=== PATIENT | female | born 2000 | race Caucasian/White ===

== ENCOUNTER → 2020-05-11 08:00 | Outpatient (BNVA) | payer OTHER, SELFPAY | PROVIDERS: Family Provider Family Medicine; PCP Pediatrics Adolescent Medicine; Visit Provider Podiatrist Foot & Ankle Surgery | DX: M79.671 Pain in right foot (principal); M21.611 Bunion of right foot | CPT/HCPCS: 73630 ==

== ENCOUNTER → 2020-06-21 15:03 | Outpatient (BNVA) | payer OTHER, SELFPAY | PROVIDERS: Family Provider Family Medicine; PCP Pediatrics Adolescent Medicine; Visit Provider Podiatrist Foot & Ankle Surgery | DX: M79.673 Pain in unspecified foot (principal) | CPT/HCPCS: 73630 ==

== ENCOUNTER → 2020-09-13 12:58 | Outpatient (BNVA) | payer OTHER, SELFPAY | PROVIDERS: Family Provider Family Medicine; PCP Pediatrics Adolescent Medicine; Visit Provider Orthopaedic Surgery | DX: M79.641 Pain in right hand (principal) | CPT/HCPCS: 73130 ==

== ENCOUNTER → 2020-09-19 17:51 | Outpatient (BNVA) | payer OTHER, SELFPAY | PROVIDERS: Family Provider Family Medicine; PCP Pediatrics Adolescent Medicine; Visit Provider Podiatrist Foot & Ankle Surgery | DX: Z11.59 Encounter for screening for other viral diseases (principal) | CPT/HCPCS: 87635 ==

== ENCOUNTER 2020-09-23 05:49 | Day surgery (SDC) | payer OTHER, SELFPAY ==
[2020-09-22 16:58] VITALS: BMI 29.4
[2020-09-23] VITALS (8 sets, daily range): BP systolic 126–139; BP diastolic 57–86; PULSE 86–136; RESP 18–22; TEMP 36.2–36.8; O2SAT 97–100; BMI 29.4
[2020-09-23] MEDS: sodium chloride 0.9% 1,000 ML 30 ML IV (06:30)
--- NOTE | 2020-09-23 06:37 | P.HPUD_ITS ---
Surgery/Procedure H&P Update DATE OF PROCEDURE: September 23, 2020 DATE H&P PERFORMED: 09/19/20 H&P UPDATE INFORMATION: I have reviewed H&P completed within last 30 days, I have examined patient prior to procedure, No changes to prior documentation and H&P is in [facility] EMR on date indicated PREOP DIAGNOSIS: Plantar verruca a bilateral PLANNED PROCEDURE: Operation Date: 09/23/20 07:00 Proposed Procedures p Co2 laser Plantar foot Plate Repair left and right 55771 B07.0(Bilateral) - Steve Barros DPM
[2020-09-23 06:38] LABS: OR HCG Qualitative Urine Negative (Negative)
--- NOTE | 2020-09-23 06:38 | P.OP_ITS ---
Operative Report Date of procedure: September 23, 2020 Pre-op Diagnosis: Plantar verruca left foot and right foot Post-op diagnosis: same Procedure Done: Destruction of plantar wart with CO2 laser left foot and right foot CPT code 01045 Implants: None Specimens removed/disposition: None Pathology: none sent Surgeon: Steve Barros D.P.M. Print Color Operator: Tanya Anesthesia: General Estimated blood loss: Less than 5 mL Tourniquet time: See intraoperative documentation IV fluids: None Urine output: None Complications: None Condition: stable Disposition: PACU Brief History: Patient has plantar verruca left and right foot that has been recalcitrant and unresponsive to conservative care consisting of paring/and debridement, offloading, vesicant's including salicylic acid, imiquimod, cryotherapy and occlusive coverings for greater than 1 year also did a course of oral cimetidine, they are symptomatic when weightbearing. Patient would like to proceed with destruction of lesions with CO2 laser. Patient seen preoperatively initial left and right foot informed consent signed, patient ready to proceed. Procedure: Under mild sedation the patient was brought to the operating room and placed on the operating table in supine position. A timeout was performed. Anesthesia was then administered by the anesthesia service. Local anesthesia injected by myself consisting of 18 cc of 1% lidocaine with epinephrine subcu taneously at the lesions left and right foot. Well-padded pneumatic tourniquet applied to left and right ankle. Left and right lower extremities were then scrubbed, prepped and draped utilizing normal aseptic technique. Bilateral feet were extenuated with a Esmarch bandage and a tourniquets were inflated to 250 mmHg. Attention was directed to the plantar aspect of the right foot and at the pos terior plantar heel a cluster of plantars warts were demarcated circular ventrally outside of the lesion itself as to provide a healthy margin utilizing a CO2 laser set on continuous 3 W. Quentin vacuum utilized for smoke. Each lesion was destroyed and curetted 2 times followed by final cauterization zoomed out still at 3 W. Appear to have a healthy level care was taken not to burn through basement membrane to avoid scarring. Attention was then directed to the plantar aspect of the left forefoot were multiple clusters both at the heel, medial and central forefoot were removed utilizing CO2 laser on 3 W continuous with subsequent debridement of devitalized tissue utilizing dermal curette. All lesions were identified, destroyed via CO2 laser with care taken not to penetrate basement membrane to avoid excessive scarring. No remaining lesions appreciated. All sites were dressed with Silvadene cream, Adaptic, sterile 4 x 4's, Kerlix and Crow wrap, postop shoe to the right foot and cam boot to the left. Tourniquet is deflated and prompt hyperemic response noted to distal digits of left and right foot. Patient tolerated the procedure well and was transferred to the PACU with vital signs stable vascular status intact. Following a period of postoperative monitoring she will be discharged home.
[2020-09-23] MEDS: midazolam 1 mg/mL INJ 2 mL 2 MG IVP (06:41)
--- NOTE | 2020-09-23 06:43 | ANES.PREANE2 ---
Pre-Anesthetic Assessment Pre-Anesthetic Assessment: Height/Weight: Height 1.65 m Weight 80.286 kg Temp Pulse Resp BP Pulse Ox 98.2 F 86 18 136/86 100 09/23/20 06:23 09/23/20 06:23 09/23/20 06:23 09/23/20 06:23 09/23/20 06:23 Preop Diagnosis: Plantar verruca a bilateral Proposed Procedure: Operation Date: 09/23/20 07:00 Proposed Procedures p Co2 laser Plantar foot Plate Repair left and right 65465 B07.0(Bilateral) - Steve Barros DPM Was Beta Christofer taken within 24 hours: N/A Last intake: Intake Last Liquid Date 09/22/20 Last Liquid Time 20:00 Last Solid Date 09/22/20 Last Solid Time 20:00 Social: Social History: No alcohol and No tobacco Exam: Pre-Anes Outpt Exam: alert, oriented x 3, clear to auscultation bilaterally and regular rate & rhythm Airway: Submandibular: WNL Cervical ROM: WNL MP: 2 Dentition: Full Pulmonary: Pulmonary: None reported CV/HEM: CV/HEM: None reported : : None reported Hepatic: Hepatic: None reported GI: GI: None reported Metabolic: Metabolic: None reported Musc/skel: Musc/skel: None reported Neuropsych: Neuropsych: None reported Anesthetic Plan: ASA status: 1 Anesthesia: MAC Risk of > 500 ml blood loss (7ml/kg in children): No Meds/Allergies Current Medications: Current Medications Generic Name Dose Route Start Last Admin Trade Name Freq PRN Reason Stop Dose Admin Sodium Chloride 1,000 mls @ 30 ml s/hr 09/23/20 06:30 09/23/20 06:30 Sodium Chloride 0.9% IV 09/24/20 06:29 30 mls/hr .Q24H KAUSHIK Administration PFSH Anesthesia PFSH: Medical History (Updated 09/20/20 @ 11:12 by Steve Barros DPM) Patient denies significant medical history Data Anesthesia Other Labs: Laboratory Results - last 48 hr 09/23/20 06:05 Urine HCG, Qual Negative Cardiac Studies: No Data to Display
[2020-09-23] MEDS: silver sulfadiazine cream 1% 50 gm 50 APPLIC (08:16)
[2020-09-23] MEDS: ondansetron 2 mg/ML SDV 2 mL 4 MG IVP (09:08)
--- NOTE | 2020-09-23 09:50 | ANE.PACU2 ---
Inpatient post-anesthesia follow up: Airway intact: Yes Vital signs: Temperature 97.6 F Pulse Rate 105 Respiratory Rate 18 Blood Pressure 126/78 Pulse Oximetry 99 Oxygen Delivery Me thod Room Air Oxygen Flow Rate Fraction of Inspir ed Oxygen Hydration adequate: Yes Nausea and vomiting: No Pain level: 1 Mental status: Baseline
== END 2020-09-23 10:04 | disposition home or self-care (01) ==
PROVIDERS: Anesthesiology; PCP Pediatrics Adolescent Medicine; Visit Provider Podiatrist Foot & Ankle Surgery
PROC: (CPT 28899; principal; 2020-09-23 07:00)
DX: B07.0 Plantar wart (principal)
CPT/HCPCS: 17110; 12345; 84703; 96374; 96375; J0690; J1100; J1885; J2250; J2405; J2704; J7030

== ENCOUNTER 2020-09-27 12:16 | Outpatient (CLI) | payer OTHER, SELFPAY ==
--- NOTE | 2020-09-27 12:00 | USCV_ITS ---
Holli Garcia Age: 20 Gender: F : 2000 Exam Date: 09/27/2020 12:48 Ordering Phys: Steve Barros DPM Technologist: Saman Cullen Exam Location: [facility] Indication: LT LEG PAINFULL KNOT OR ROPE IN BACK OF LT CALF HISTORY: POST OP LT FOOT PROCEDURES: Venous duplex imaging was performed in only the left lower extremity. The following venous structures were evaluated: common femoral vein, profunda vein, proximal portion of the greater saphenous vein, superficial femoral vein, and the popliteal vein. In addition, the posterior tibial and peroneal trunk were evaluated. FINDINGS: Normal 2-D Doppler and augmentation and compressibility throughout the lower extremity venous structures. Additional imaging through the proximal calf veins also reveals no thrombus.Acute thrombus lesser saphenous vein. CONCLUSIONS No DVT left lower extremity. Acute thrombus lesser saphenous vein. Dr. Hailee Guajardo DO (Electronically Signed) Final Date: 27 September 2020 14:53 S
== END 2020-09-27 12:17 | disposition home or self-care (01) ==
LOC: RAD 12:19
PROVIDERS: PCP Family Medicine; Visit Provider Podiatrist Foot & Ankle Surgery
DX: Z98.890 Other specified postprocedural states (principal); M79.662 Pain in left lower leg; I82.890 Acute embolism and thrombosis of other specified veins
CPT/HCPCS: 93971

== ENCOUNTER → 2020-11-08 12:24 | Outpatient (BNVA) | payer OTHER, SELFPAY | PROVIDERS: PCP Family Medicine | DX: M25.561 Pain in right knee (principal) | CPT/HCPCS: 73562 ==

== ENCOUNTER 2020-11-28 08:19 | Outpatient (CLI) | payer OTHER, SELFPAY ==
--- NOTE | 2020-11-28 08:29 | MR_ITS ---
WS: [id number] MRI RIGHT KNEE NONCONTRAST TECHNIQUE: Axial PD, coronal PD fat sat, coronal PD, sagittal PD, and sagittal PD fat-sat images obta ined. CLINICAL INFORMATION: 3 WEEKS OF PAIN/SWELLING, CREPITUS AFTER TWISTING INJURY COMPARISON: None. FINDINGS: Distal quadriceps and patella tendons are intact. Mild prepatellar soft tissue edema. Normal anterior and posterior cruciate ligaments. Slight blunting with edema involving the posterior horn medial men iscus at the meniscal root suspicious for small tear. Normal lateral meniscus. Mild chondromalacia pa tella worse involving the medial patella facet. No subchondral edema. Normal popliteal fossa. Normal soft tissues. Normal bone marrow signal in the tibial plateau. Normal medial and lateral collateral ligaments. MR/MR knee RT wo con* [id number] IMPRESSION: 1. Normal anterior and posterior cruciate ligaments. 2. Small joint effusion. Slight blunting of the posterior horn medial meniscus with suspected small tear at the meniscal root. Lateral meniscus is normal. 3. Mild chondromalacia patella involving the medial patella facet. Medial and lateral patellar retinaculum appear intact. 4. Normal medial and lateral collateral ligaments. 5. Normal popliteal fossa.
== END 2020-11-28 08:20 | disposition home or self-care (01) ==
LOC: RADWPI 08:22
PROVIDERS: PCP Family Medicine; Visit Provider Emergency Medicine
DX: M25.561 Pain in right knee (principal); M25.461 Effusion, right knee; M22.41 Chondromalacia patellae, right knee
CPT/HCPCS: 73721

== ENCOUNTER 2020-12-16 08:26 | Outpatient (RCR) | payer OTHER, SELFPAY | END 2021-01-01 23:59 | disposition home or self-care (01) | LOC: SPT 08:26 | PROVIDERS: PCP Family Medicine; Referring Provider Orthopaedic Surgery; Visit Provider Orthopaedic Surgery | DX: M25.561 Pain in right knee (principal) | CPT/HCPCS: 97110; 97161 ==

== ENCOUNTER 2021-01-02 06:00 | Outpatient (RCR) | payer OTHER, SELFPAY | END 2021-01-29 23:59 | disposition home or self-care (01) | LOC: SPT 06:00 | PROVIDERS: PCP Family Medicine; Referring Provider Orthopaedic Surgery; Visit Provider Orthopaedic Surgery | DX: S83.91XD Sprain of unspecified site of right knee, subsequent encounter (principal); X58.XXXD Exposure to other specified factors, subsequent encounter | CPT/HCPCS: 97110 ==

== ENCOUNTER → 2021-02-24 13:38 | Outpatient (BNVA) | payer OTHER, SELFPAY | PROVIDERS: PCP Family Medicine; Visit Provider Orthopaedic Surgery | DX: Z01.812 Encounter for preprocedural laboratory examination (principal); Z20.822 Contact with and (suspected) exposure to COVID-19 | CPT/HCPCS: 87635 ==

== ENCOUNTER 2021-03-02 06:33 | Day surgery (SDC) | payer OTHER, SELFPAY ==
[2021-03-01 13:28] VITALS: BMI 30.7
[2021-03-02] VITALS (8 sets, daily range): BP systolic 81–132; BP diastolic 38–75; PULSE 83–99; RESP 16–18; TEMP 36.3–36.8; O2SAT 93–100
[2021-03-02 07:06] LABS: OR HCG Qualitative Urine Negative (Negative)
[2021-03-02] MEDS: sodium chloride 0.9% 1,000 ML 30 ML IV (07:19)
--- NOTE | 2021-03-02 07:27 | ANES.PREANE2 ---
Pre-Anesthetic Assessment Pre-Anesthetic Assessment: Height/Weight: Height 1.63 m Weight 81.193 kg Temp Pulse Resp BP Pulse Ox 98.2 F 88 18 128/75 100 03/02/21 07:14 03/02/21 07:14 03/02/21 07:14 03/02/21 07:14 03/02/21 07:14 Preop Diagnosis: Knee medial meniscal tear Proposed Procedure: Operation Date: 03/02/21 08:10 Proposed Procedures p right knee diagnostic arthroscopy with medial meniscectomy (13770) s86.911A(Right) - Warren Lara MD Was Beta Christofer taken within 24 hours: N/A Was Clonidine taken within 24 hours: N/A Last intake: Intake Last Liquid Date 03/01/21 Last Liquid Time 20:00 Last Solid Date 03/01/21 Last Solid Time 20:00 Social: Social History: No alcohol and No tobacco Exam: Pre-Anes Outpt Exam: alert, oriented x 3, clear to auscultation bilaterally and regular rate & rhythm Airway: Submandibular: WNL Cervical ROM: WNL MP: 2 Dentition: Full History/ROS: No significant history except as noted Metabolic: Metabolic: Morbid obesity Anesthetic Plan: ASA status: 2 Anesthesia: General Risk of > 500 ml blood loss (7ml/kg in children): No Meds/Allergies Current Medications: Current Medications Generic Name Dose Route Start Last Admin Trade Name Freq PRN Reason Stop Dose Admin Sodium Chloride 1,000 mls @ 30 ml s/hr 03/02/21 07:00 03/02/21 07:19 Sodium Chloride 0.9% IV 03/03/21 06:59 30 mls/hr .Q24H KAUSHIK Administration PFSH Anesthesia PFSH: Medical History Patient denies significant medical history Social History Smoking and tobacco status: never smoked Female Reproductive History: Date of last menstrual period: 02/13/21 Data Anesthesia Other Labs: Laboratory Results - last 48 hr 03/02/21 07:01 Urine HCG, Qual Negative Cardiac Studies: No Data to Display
--- NOTE | 2021-03-02 07:53 | W.PM.OPSUD ---
Surgery/Procedure H&P Update DATE OF PROCEDURE: March 02, 2021 DATE H&P PERFORMED: 02/07/21 PREOP DIAGNOSIS: Knee medial meniscal tear PLANNED PROCEDURE: Operation Date: 03/02/21 08:10 Proposed Procedures p right knee diagnostic arthroscopy with medial meniscectomy (78531) s86.911A(Right) - Warren Lara MD
[2021-03-02] MEDS: morphine 4 mg/mL SDV 1 mL 8 MG (08:50)
--- NOTE | 2021-03-02 09:09 | PM.OP ---
Operative Report Date of procedure: March 02, 2021 Pre-op Diagnosis: Right knee medial meniscal tear Post-op diagnosis: other Post-op Diagnosis: Normal right knee Procedure Done: Diagnostic arthroscopy right knee Pathology: none sent Surgeon: Warren Lara Anesthesia: General Estimated blood loss (mL): 2 Findings: The patient had a healthy-appearing menisci and internal stabilizing ligaments. She had no specific chondromalacia. Condition: stable Disposition: PACU Brief History: The patient is a 20-year-old female who twisted her knee at work resulting knee pain. An MRI was equivocal for meniscal tearing. She had failed to improve after home exercise program and months of observation. She was taken to the operating room for diagnostic arthroscopy and treatment of a suspected meniscal tear Procedure: The patient was taken to the operating room and given a general anesthesia. She was given 2 g of Ancef preoperatively. She was prepped and draped in the supine position with a tourniquet on the right thigh. The knee was infiltrated with 30 cc of 0.5% Marcaine with epi and 8 mg of morphine. A timeout was performed. The knee was entered through a standard inferior medial and inferior lateral portal. Diagnostic portion arthroscopy was performed. The menisci were carefully probed and found to be free of tearing. Cartilage surfaces were free of chondromalacia. The internal stabilizing ligaments were healthy. The knee was irrigated with saline. Portals were closed with 3-0 Prolene. Sterile dressings were applied. The patient was extubated and taken to recovery room in stable condition.
--- NOTE | 2021-03-02 09:13 | SUR.PHASEI ---
PT RESTING QUIETLY WITH GOOD RESP NOTED ORAL AIRWAY IN PLACE, VSS
--- NOTE | 2021-03-02 09:24 | SUR.PHASEI ---
0920 PT AWAKE ALERT DENIES NAUSEA RATES PAIN ( JUST A LITTLE, ITS OK) VSS DRESSING TO RT KNEE D/I DISTAL FOOT PINK WARM WITH STRONG REGULAR PULSE NOTED. PT ON RA TRIAL.
[2021-03-02] MEDS: HYDROcodone-acetaminophen 5-325 mg Tablet 1 TAB PO (09:50)
[2021-03-02] MEDS: ondansetron 2 mg/ML SDV 2 mL 4 MG IVP (09:53)
--- NOTE | 2021-03-02 14:44 | ANE.PACU2 ---
Inpatient post-anesthesia follow up: Airway intact: Yes Vital signs: Temperature 97.3 F Pulse Rate 90 Respiratory Rate 18 Blood Pressure 132/69 Pulse Oximetry 96 Oxygen Delivery Me thod Room Air Oxygen Flow Rate 6 Fraction of Inspir ed Oxygen Hydration adequate: Yes Nausea and vomiting: No Pain level: 1 Mental status: Baseline
== END 2021-03-02 11:04 | disposition home or self-care (01) ==
PROVIDERS: PCP Family Medicine; Visit Provider Orthopaedic Surgery
PROC: (CPT 29870; principal; 2021-03-02 08:10)
DX: S83.241A Other tear of medial meniscus, current injury, right knee, initial encounter (principal); X50.1XXA Overexertion from prolonged static or awkward postures, initial encounter; Y99.0 Civilian activity done for income or pay; E66.01 Morbid (severe) obesity due to excess calories; Z68.30 Body mass index [BMI] 30.0-30.9, adult
CPT/HCPCS: 29870; 81025; 84703; 96374; J0690; J2250; J2270; J2405; J3010; J3490; J7030

== ENCOUNTER → 2021-12-11 12:02 | Outpatient (BNVA) | payer OTHER, SELFPAY | PROVIDERS: PCP Family Medicine; Visit Provider Family Medicine | DX: Z20.828 Contact with and (suspected) exposure to other viral communicable diseases (principal) | CPT/HCPCS: 87635 ==

== ENCOUNTER 2022-10-17 06:57 | Emergency (ER) | payer OTHER, SELFPAY ==
[2022-10-17] VITALS (9 sets, daily range): BP systolic 125–145; BP diastolic 68–96; PULSE 87–95; RESP 14–20; TEMP 36.8; O2SAT 93–100; BMI 30.9
--- NOTE | 2022-10-17 07:16 | CTR_ITS ---
PROCEDURE INFORMATION: Exam: CT Abdomen And Pelvis Without Contrast Exam date and time: 10/17/2022 7:54 AM Age: 22 years old Clinical indication: Abdominal pain; Flank; Right; Additional info: Flank pain TECHNIQUE: Imaging protocol: Computed tomography of the abdomen and pelvis without contrast. Radiation optimization: All CT scans at this facility use at least one of these dose optimization techniques: automated exposure control; mA and/or kV adjustment per patient size (includes targeted exams where dose is matched to clinical indication); or iterative reconstruction. COMPARISON: CR XR KUB [id number] 05/27/2016 9:07 PM RADIATION DOSE METRICS: Total DLP (mGy-cm): 710.17 FINDINGS: Lungs: The visualized portions of the lung bases are normal. Liver: Appears unremarkable on the non-contrast CT. Gallbladder and bile ducts: No calcified stones. No ductal dilation. Pancreas: Appears unremarkable on the non-contrast CT. No ductal dilation. Spleen: Appears unremarkable on the non-contrast CT. No splenomegaly. Adrenal glands: Normal. No mass. Kidneys and ureters: No intrarenal calculi seen. No contour deforming renal masses seen on the noncontrast CT. No right hydronephrosis, ureterectasis or ureteral calculi. [id number] left hydronephrosis and proximal ureterectasis with a left proximal ureteral your 0.25 x 0.25 x 0.5 cm calculus (series 3, image 101 and series 5, image 79)-at the level of the L2 vertebral body. Stomach and bowel: The noncontrast opacified stomach appears unremarkable. The noncontrast opacified loops of small bowel in the abdomen and pelvis appear unremarkable. The noncontrast opacified loops of colon in the abdomen and pelvis appear unremarkable. The lack of orally administered contrast material limits bowel assessment. Appendix: Retrocecal appendix seen in the right subhepatic region. No evidence of appendicitis. Intraperitoneal space: No free air. No significant fluid collection. Vasculature: No abdominal aortic aneurysm. Lymph nodes: No enlarged lymph nodes. Urinary bladder: The bladder is not well distended with relative wall prominence. Assessment is limited. Reproductive: Left ovarian simple 2.6 x 2.7 cm cyst is seen. Recommend correlation with phase of gynecologic cycle. Intrauterine device is seen. Bones/joints: No acute osseous abnormalities seen. Soft tissues: Unremarkable. CT/CT kidney stone [id number] IMPRESSION: [id number] left hydronephrosis and proximal ureterectasis with a left proximal ureteral your 0.25 x 0.25 x 0.5 cm calculus (series 3, image 101 and series 5, image 79)-at the level of the L2 vertebral body.
[2022-10-17] MEDS: ondansetron 2 mg/ML SDV 2 mL 4 MG IVP (07:20)
[2022-10-17] MEDS: morphine 4 mg/mL SDV 1 mL IVP (07:22)
--- NOTE | 2022-10-17 07:27 | ED_ITS ---
HPI - Abdominal Pain General: Chief Complaint: Abdominal Pain Stated Complaint: ABD Pains and lower back pains Time Seen by Provider: 10/17/22 06:59 Source: patient Mode of arrival: ambulatory History of Present Illness: 22-year-old female who presents emergency room complaining of abdominal pain low back pain severe. She is writhing in pain and cannot tolerate a position she is constantly moving try to find comfortable positions causing severe nausea and vomiting as well she denies any history of nephrolithiasis. No dysuria urgency or frequency. No previous abdominal surgeries no hematuria. MD elicited complaint: abdominal pain Onset (ago): hour(s) Pain Consistency: constant Location: L flank Severity: severe Quality: sharp Migration to: suprapubic Exacerbating factors: nothing Relieving factors: nothing Associated Symptoms: Reports GI cramping, nausea, poor appetite and vomiting; Denies anorexia, belching, bloating, change in bowel habits, change in stool character, chills, coffee ground emesis, constipation, diarrhea, dyspepsia, dysuria, excessive flatus, fever(s), heartburn, hematochezia, hematuria, hematemesis, fecal incontinence, loose stools, melena and syncope Related Data: Date of Last Menstrual Period: 02/13/21 Review of Systems Const: Denies: fever(s) or chills ENMT: Denies: throat pain, ear or mastoid pain, nasal discharge or nasal congestion Card: Denies: chest pain, palpitations, irregular heart rhythm or syncope Resp: Denies: dyspnea, productive cough or non-productive cough GI: Reports: abdominal pain, nausea, vomiting and GI cramping; Denies: hematemesis, coffee ground emesis, heartburn, diarrhea, constipation, bloating, belching, excessive flatus, fecal incontinence, change in bowel habits, change in stool character, hematochezia or melena : Reports: flank pain; Denies: difficulty voiding, dysuria, urinary frequency, urinary urgency or hematuria Skin/Breast: Denies: rash or pruritus PFSH ED PFSH: Medical History Patient denies significant medical history Social History Smoking and tobacco status: never smoked Female Reproductive History: Date of last menstrual period: 02/13/21 Physical Exam Const: GENERAL APPEARANCE: cooperative ORIENTATION/CONSCIOUSNESS: Yes awake, Yes oriented to person, Yes oriented to place and Yes oriented to time HENMT: COMMON NORMALS: normocephalic, atraumatic and hearing grossly normal bilaterally HEAD & SCALP: normocephalic and atraumatic Resp: COMMON NORMALS: normal respiratory effort, No retractions, No use of accessory muscles and clear to auscultation bilaterally AUSCULTATION: clear to auscultation bilaterally Cardio: COMMON NORMALS: regular rate, regular rhythm and No murmurs present (Cardio) RATE: regular rate RHYTHM: regular rhythm GI: COMMON NORMALS: Soft to palpation and No hepatosplenomegaly present AUSCULTATION: Yes normoactive bowel sounds PALPATION: Yes Soft to palpation, No Tenderness to palpation present (GI), No Guarding due to palpation present (GI) and Yes No hepatosplenomegaly present Extremity: COMMON NORMALS: normal to inspection, capillary refill normal, no clubbing, cyanosis or edema, no calf tenderness and no pedal edema Neuro: SENSORIUM/ORIENTATION: Yes oriented to person, Yes oriented to place and Yes oriented to time Skin: COMMON NORMALS: no rashes or lesions noted GENERAL SKIN EXAM: no rashes or lesions noted Course Vital Signs: Vital signs: Vital Signs Temperature 98.3 F 10/17/22 06:59 Pulse Rate 87 10/17/22 10:15 Respiratory Rate 14 10/17/22 10:15 Blood Pressure 125/68 10/17/22 10:15 Pulse Oximetry 98 10/17/22 10:15 Oxygen Delivery In thod 10/17/22 10:15 MDM - Abdominal Pain Medical Decision Making Nephrolithiasis. 5 mm stone proximal portion of the ureter. Will discharge ho me pain is well controlled at this time strain urine her white count is elevated but has very few white blood cells mostly squamous cells. Did not treat with antibiotics at this point follow-up with Dr. Cross return if is worsening problems. Medical Records I reviewed the patient's medical records. Lab Data I reviewed the patient's lab results. : 10/17/22 08:16 10/17/22 07:17 Labs/Radiology: Radiology Impressions Abdomen/Pelvis CT 10/17/22 07:16 IMPRESSION: [id number] left hydronephrosis and proximal ureterectasis with a left proximal ureteral your 0.25 x 0.25 x 0.5 cm calculus (series 3, image 101 and series 5, image 79)-at the level of the L2 vertebral body. Laboratory Results WBC 14.6 10^3/uL (4.0-10.0) H 10/17/22 08:16 Corrected WBC Cancelled 10/17/22 07:17 RBC 5.15 10^6/uL (4.1-5.3) 10/17/22 08:16 Hgb 15.2 g/dL (11.5-15.3) 10/17/22 08:16 Hct 45.7 % (37.0-47.0) 10/17/22 08:16 MCV 88.7 fl (81-99) 10/17/22 08:16 MCH 29.5 pg (28.0-34.0) 10/17/22 08:16 MCHC 33.3 g/dL (30.0-36.0) 10/17/22 08:16 RDW 12.6 % (12.1-15.1) 10/17/22 08:16 Plt Count 265 10^3/cmm (130-400) 10/17/22 08:16 MPV 11.4 fL (7.4-10.4) H 10/17/22 08:16 Gran % Cancelled 10/17/22 07:17 Neut % (Auto) 74.4 % 10/17/22 08:16 Lymph % (Auto) 18.1 % 10/17/22 08:16 [place] % (Auto) 6.3 % 10/17/22 08:16 Eos % (Auto) 0.5 % 10/17/22 08:16 Baso % (Auto) 0.4 % 10/17/22 08:16 Neut # (Auto) 10.84 10^3/uL (1.8-7.7) H 10/17/22 08:16 Lymph # (Auto) 2.6 10^3/uL (0.8-4.8) 10/17/22 08:16 [place] # (Auto) 0.9 10^3/uL (0.2-0.9) 10/17/22 08:16 Eos # (Auto) 0.1 10^3/uL (0.0-0.8) 10/17/22 08:16 Baso # (Auto) 0.1 10^3/uL (0.0-0.1) 10/17/22 08:16 Absolute Gran (auto) Cancelled 10/17/22 07:17 Nucleated RBC % (auto) 0 % 10/17/22 08:16 Nucleated RBCs # 0.0 /100WBC 10/17/22 08:16 Sodium 138 mmol/L (136-145) 10/17/22 07:17 Potassium 3.1 mmol/L (3.5-5.1) L 10/17/22 07:17 Chloride 104 mmol/L (98-107) 10/17/22 07:17 Carbon Dioxide 21 mmol/L (22-29) L 10/17/22 07:17 Anion Gap 16.1 (5-19) 10/17/22 07:17 BUN 10 mg/dL (6-20) 10/17/22 07:17 Creatinine 0.8 mg/dL (0.5-0.9) 10/17/22 07:17 GFR Calculation 88.1 mL/min (90-130) L 10/17/22 07:17 Glucose 107 mg/dL (65-115) 10/17/22 07:17 Calculated Osmolality 286 mOsm/kg (285-295) 10/17/22 07:17 Calcium 9.8 mg/dL (8.5-10.5) 10/17/22 07:17 HCG, Qual Negative (Negative) 10/17/22 07:17 Urine Color Yellow (Yellow) 10/17/22 08:52 Urine Appearance Clear (CLEAR) 10/17/22 08:52 Urine pH 6.5 (5-7) 10/17/22 08:52 Ur Specific [place] 1.015 (1.005-1.030) 10/17/22 08:52 Urine Protein Neg (Negative) 10/17/22 08:52 Urine Glucose (UA) Norm (Normal) 10/17/22 08:52 Urine Ketones Negative (Negative) 10/17/22 08:52 Urine Blood 3+ (Negative) H 10/17/22 08:52 Urine Nitrate Negative (Negative) 10/17/22 08:52 Urine Bilirubin Neg (Negative) 10/17/22 08:52 Urine Urobilinogen Norm mg/dL (Negative) 10/17/22 08:52 Ur Leukocyte Esterase Trace (Negative) H 10/17/22 08:52 Urine RBC Too numerous to cnt /hpf (0-2) H 10/17/22 08:52 Urine WBC 0-4 /hpf (0-5) H 10/17/22 08:52 Ur Squamous Epith Cells 25-40 /hpf (0-5) H 10/17/22 08:52 Amorphous Sediment Not Reportable 10/17/22 08:52 Urine Bacteria 2+ /hpf (NONE) H 10/17/22 08:52 Discharge Plan Discharge Patient Disposition: Home Clinical Impression: Left nephrolithiasis Condition: Stable Prescriptions: New hydrocodone-acetaminophen 5-325 mg tablet 1 tab PO Q6H PRN (Reason: pain) Qty: 20 0RF ondansetron HCl 4 mg tablet 4 mg PO Q6H PRN (Reason: nausea and vomiting) Qty: 20 0RF tamsulosin 0.4 mg capsule 0.4 mg PO DAILY Qty: 14 0RF No Action propranolol 20 mg tablet 20 mg PO escitalopram oxalate 5 mg tablet 5 mg PO clindamycin-benzoyl peroxide 1.2 %(1 % base) -5 % gel 1 applic topical DAILY Qty: 45 2RF Rx Instructions: Apply thin film to face chest and back every morning. May bleach clothes. adapalene 0.3 % gel 1 applic topical DAILY Qty: 45 3RF Rx Instructions: Apply pea-sized amount to clean, dry face nightly ketoconazole 2 % cream 1 applic topical BID Qty: 30 2RF Rx Instructions: between toes x 5 weeks then prn methylprednisolone [Medrol (Clint)] 4 mg tablets,dose pack See Rx Instructions PO PER PKG DIR Qty: 21 0RF Rx Instructions: PO PER PKG DIR meloxicam 15 mg tablet 15 mg PO DAILY Qty: 30 3RF Discharge Orders: Discharge ED (Routine); Ordered 10/17/22 Ordered By: Ronaldo Aviles Referrals: Crispin Shine MD [Primary Care Provider] - Discharge Diet: Usual diet Discharge Activity: Increase activity as tolerated Patient Instructions: Opioid Safety, Pain Management Activity Restrictions/Additional Instructions: Follow-up with urology. Strain urine to catch stone. Stand Alone Forms: Work/School Release Coding Level of Care Code ED Plate Painter for Chg Fwd Exam Detailed
[2022-10-17 07:40] LABS: HCG, Serum Qual Negative (Negative)
[2022-10-17] MEDS: morphine 4 mg/mL SDV 1 mL 2 MG IVP (07:45)
[2022-10-17 07:49] LABS: Anion Gap 16.1 (5-19); Blood Urea Nitrogen 10 mg/dL (6-20); Calcium 9.8 mg/dL (8.5-10.5); Carbon Dioxide 21 mmol/L (22-29); Chloride 104 mmol/L (98-107); Glomerular Filtration Rate 88.1 mL/min (90-130); Glucose 107 mg/dL (65-115); Osmolality Calculated 286 mOsm/kg (285-295); Potassium 3.1 mmol/L (3.5-5.1); Sodium 138 mmol/L (136-145)
--- NOTE | 2022-10-17 07:58 | PC.NURSE ---
unable to obtain all lab tubes with initial IV start. lab notified of venipuncture needed. Lab unsuccess with venipuncture. Nurse attempted venipuncture x2, unable to obtain blood for labs. Another nurse to attempt venipuncture when pt returns from CT.
[2022-10-17] MEDS: ketorolac 30 mg/mL INJ IVP (08:19)
[2022-10-17 08:36] LABS: Basophils # 0.1 10^3/uL (0.0-0.1); Basophils % 0.4 %; Eosinophils # 0.1 10^3/uL (0.0-0.8); Eosinophils % 0.5 %; Hematocrit 45.7 % (37.0-47.0); Hemoglobin 15.2 g/dL (11.5-15.3); Lymphocytes # 2.6 10^3/uL (0.8-4.8); Lymphocytes % 18.1 %; Mean Corpuscular HGB Conc 33.3 g/dL (30.0-36.0); Mean Corpuscular Hemoglobin 29.5 pg (28.0-34.0); Mean Corpuscular Volume 88.7 fl (81-99); Mean Platelet Volume 11.4 fL (7.4-10.4); Monocytes # 0.9 10^3/uL (0.2-0.9); Monocytes % 6.3 %; Neutrophils # 10.84 10^3/uL (1.8-7.7); Neutrophils % 74.4 %; Nucleated Red Blood Cells % 0 %; Platelet Count 265 10^3/cmm (130-400); Red Blood Count 5.15 10^6/uL (4.1-5.3); Red Cell Distribution Width 12.6 % (12.1-15.1); White Blood Count 14.6 10^3/uL (4.0-10.0)
[2022-10-17 09:58] LABS: Bilirubin Urine Neg (Negative); Blood Urine 3+ (Negative); Glucose Urine UA Norm (Normal); Ketones Urine Negative (Negative); Nitrate Urine Negative (Negative); Protein Urine Neg (Negative); Specific Gravity, Urine 1.015 (1.005-1.030); Urine Appearance Clear (CLEAR); Urine Color Yellow (Yellow); Urobilinogen Urine Norm (Negative); pH Urine 6.5 (5-7)
[2022-10-17 09:59] LABS: Add Urine Culture? Yes; Add Urine Microscopic? YES; Bacteria Urine 2+ /hpf; Leukocyte Esterase Urine Trace (Negative); RBC Urine TOO NUMEROUS TO CNT /hpf (0-2); Squamous Epithelial Cell Urine 25-40 /hpf (0-5); WBC Urine 0-4 /hpf (0-5)
== END 2022-10-17 10:20 | disposition home or self-care (01) ==
PROVIDERS: Emergency Provider Family Medicine; PCP Family Medicine
DX: N20.0 Calculus of kidney (principal)
CPT/HCPCS: 74176; 80048; 81001; 84703; 85025; 87086; 96374; 96375; 96376; 99285; J1885; J2270; J2405

== ENCOUNTER 2022-10-18 07:08 | Outpatient (CLI) | payer OTHER, SELFPAY ==
--- NOTE | 2022-10-18 07:16 | XR_ITS ---
WS: [id number] Exam: XR KUB [id number] Date/Time of Exam: 10/18/2022 7:16 AM Reason For Exam: STONES Comparison 05/27/2016. No bowel obstruction or free air. No sign of organ enlargement. 5 mm calcification seen along the lef t paraspinal region at about the level of L3 likely represents a ureteral stone which has been some d escribed on recent renal colic CT scan. No calcifications noted in the region of the kidneys. T-type IUD in the central pelvis. Bony structures are intact. Mild lumbar spine and levoscoliosis. XR/XR KUB [id number] IMPRESSION: 1. 5 mm left paraspinal calcification at the level of L3 likely represents a kn own ureteral stone. 2. No other significant finding in the abdomen.
== END 2022-10-18 07:09 | disposition home or self-care (01) ==
LOC: RAD 07:11
PROVIDERS: PCP Family Medicine; Visit Provider Urology
DX: N20.0 Calculus of kidney (principal)
CPT/HCPCS: 74018; 81003; 82365; 88300

== ENCOUNTER 2022-10-24 07:17 | Outpatient (CLI) | payer OTHER, SELFPAY ==
--- NOTE | 2022-10-24 07:32 | XRR_ITS ---
PROCEDURE INFORMATION: Exam: XR Abdomen Exam date and time: 10/24/2022 7:33 AM Age: 22 years old Clinical indication: Condition or disease; Kidney or ureter condition; Calculus (stone) in kidney; Additional info: Stones, kub @ [facility] on 10/24/22 @ 7:00am, appt to follow TECHNIQUE: Imaging protocol: Radiologic exam of the abdomen. Views: Frontal supine view of the abdomen. 1 View. COMPARISON: CR XR KUB [id number] 10/18/2022 7:19 AM FINDINGS: Gastrointestinal tract: Normal. No bowel dilation. Organs: IUD is present in the central pelvis. Bones/joints: Unremarkable. XR/XR KUB [id number] IMPRESSION: 1. No acute findings. 2. IUD is in the central pelvis.
== END 2022-10-24 07:18 | disposition home or self-care (01) ==
PROVIDERS: PCP Family Medicine; Visit Provider Urology
DX: N20.1 Calculus of ureter (principal)
CPT/HCPCS: 74018

== ENCOUNTER 2022-10-31 06:27 | Day surgery (SDC) | payer OTHER, SELFPAY ==
[2022-10-31] VITALS (9 sets, daily range): BP systolic 100–147; BP diastolic 53–84; PULSE 70–110; RESP 18; TEMP 36.2–37.2; O2SAT 95–100
--- NOTE | 2022-10-31 06:33 | SC_ITS ---
WS: [id number] C-arm [facility] for U[facility] REASON FOR EXAM: Left ureteroscopy FINDINGS: Left ureteral stent placement. Previously demonstrated left ureteral calculus at the L3 level not identifiable on the procedural kandis ging. SC/C-arm [facility] IMPRESSION: Left ureteral stent placement.
--- NOTE | 2022-10-31 06:33 | XRR_ITS ---
PROCEDURE INFORMATION: Exam: XR Abdomen Exam date and time: 10/31/2022 6:52 AM Age: 22 years old Clinical indication: Screening exam; Other: Preoperative; Additional info: Preop left ureteroscopy TECHNIQUE: Imaging protocol: Radiologic exam of the abdomen. Views: Frontal supine view of the abdomen. 1 View. COMPARISON: CR XR KUB [id number] 10/24/2022 7:33 AM FINDINGS: Gastrointestinal tract: Normal. No bowel dilation. Organs: An IUD projects on the uterus. Bones/joints: A 4 mm calcification projects to the left of L3 consistent with the ureteral calculus that was seen on recent CT scan. XR/XR KUB [id number] IMPRESSION: 4 mm left ureteral calculus is similar position to previous CT scan.
[2022-10-31 07:27] LABS: OR HCG Qualitative Urine Negative (Negative)
[2022-10-31] MEDS: sodium chloride 0.9% 1,000 ML 30 ML IV (07:29)
[2022-10-31] MEDS: scopolamine 1.5 Patch 1 PATCH TRANSDERMA (07:34)
--- NOTE | 2022-10-31 07:40 | ANES.PREANE2 ---
Pre-Anesthetic Assessment Height/Weight: Height 1.63 m Weight 79.379 kg Temp Pulse Resp BP Pulse Ox O2 Del Method 99.0 F 96 18 147/84 95 10/31/22 07:16 10/31/22 07:16 10/31/22 07:16 10/31/22 07:16 10/31/22 07:16 10/31/22 07:16 Preop Diagnosis: Refractory left proximal ureteral stone Operation Date: 10/31/22 08:05 Proposed Procedures p CYSTOSCOPY LEFT RETROGRADE URETEROSCOPY LASER STENT 49542 MODIFIER 26 16637 20713 N20.1, N20.0(Not Applicable) - Miguel Cross MD s Retrograde Pyelogram(Left) - MD randa Castellanos Ureteroscopy(Left) - MD randa Castellanos Laser Lithotripsy(Left) - MD randa Castellanos Ureteral Stent Placement(Left) - Miguel Cross MD Familial anesthetic complications: None Was Beta Christofer taken within 24 hours: Yes Was Clonidine taken within 24 hours: N/A Last intake: Intake Last Liquid Date 10/30/22 Last Liquid Time 20:00 Last Solid Date 10/30/22 Last Solid Time 19:30 Social No alcohol and No tobacco Exam alert, oriented x 3, clear to auscultation bilaterally and regular rate & rhythm Airway Mallampati: Class II Dentition: full Pulmonary recent slight fever and light dry cough, lungs now CTA, states she feels back to baseline health CV/HEM Arrythmia (tachycardia - propanolol) Anesthetic Plan ASA status: 2 Anesthesia: General Risk of > 500 ml blood loss (7ml/kg in children): No Medications/Allergies Home Medications Medication Instructions Recorded Confirmed Last Taken Type adapalene 0.3 % topical gel 1 applic topical DAILY #45 grams 08/17/21 10/31/22 Unknown Rx clindamycin 1.2 % (1 % 1 applic topical DAILY #45 grams 08/17/21 10/31/22 Unknown Rx base)-benzoyl peroxide 5 % topical gel escitalopram oxalate 5 mg tablet 5 mg PO DAILY 08/31/22 10/30/22 10/30/22 History (Lexapro) propranolol 20 mg tablet 20 mg PO DAILY 08/31/22 10/31/22 10/30/22 History hydrocodone 5 mg-acetaminophen 325 1 tab PO Q6H PRN pain #20 tabs 10/17/22 10/31/22 Unknown Rx mg tablet ondansetron HCl 4 mg tablet 4 mg PO Q6H PRN nausea and 10/17/22 10/31/22 Unknown Rx vomiting #20 tabs ketorolac 10 mg tablet 10 mg PO Q8H PRN pain #14 tabs 10/18/22 10/31/22 10/29/22 Rx amoxicillin 500 mg capsule 1,000 mg PO Q8H #30 caps 10/30/22 10/31/22 Unknown Rx Allergies Allergy/AdvReac Type Severity Reaction Status Date / Time No Known Allergies Allergy Verified 10/31/22 07:13 Current Medications Generic Name Dose Route Start Last Admin Trade Name Freq PRN Reason Stop Dose Admin Sodium Chloride 1,000 mls @ 30 mls/hr 10/31/22 06:45 10/31/22 07:29 Sodium Chloride 0.9% IV 11/01/22 06:44 30 mls/hr .Q24H KAUSHIK Administration PFSH Anesthesia Medical History (Updated 10/25/22 @ 00:01 by ) Tachycardia Well-controlled with propranolol Family History Mother No problems noted. Father No problems noted. Social History Smoking and tobacco status: never smoked Female Reproductive History Date of last menstrual period: 02/13/21 Data Anesthesia Cardiac Studies: No Data to Display
--- NOTE | 2022-10-31 08:42 | PM.OP ---
Operative Report Date of procedure: October 31, 2022 Pre-op diagnosis: Refractory left proximal ureteral stone Post-op diagnosis: Refractory left proximal ureteral stone Procedure done: 1. Cystoscopy, LEFT retrograde ureteropyelogram 2. LEFT: Ureteroscopy, laser lithotripsy, stent Implants: LEFT ureteral stent Specimens removed/disposition: Stone fragments Pathology: Stone fragments Surgeon: Tay Estimated blood loss: Minimal Urine output: Not measured Complications: None Findings: Anesthesia: General Condition: Stable Disposition: PACU Intraoperative findings: Retrograde showed the stone in the expected position Stone easily accessed and fragmented with laser lithotripsy 6 [place] by 24 cm double-pigtail stent left indwelling at the completion of the procedure. Brief History: Holli is a delightful 22-year-old white female who was recently diagnosed with an obstructing 3 to 4 mm left proximal ureteral stone. Initially treated with conservative management with anticipation of spontaneous passage but the stone really made no significant progression. She was still having symptomatic problems and requiring medication and was becoming logistically difficult for her to work and deal with the stone and she elected intervention. Based on the small size of the stone and sometimes difficult visualization it was decided to treat the stone endoscopically. Admitted for ureteroscopic laser lithotripsy. Procedure: After routine preoperative evaluation examination and obtaining of informed consent she was taken to the operating suite on 10/31/2022 where general anesthesia was administered without difficulty after appropriate timeout was performed, SCDs confirmed to be functioning, preoperative antibiotics administered, beta-kenneth protocol confirmed. Prepped and draped in usual sterile fashion in dorsolithotomy position paying careful attention to avoiding pressure points. 21 [place] cystoscope with 30 degree lens was introduced into urethra meatus and advanced into the bladder without difficulty. Bladder was systematically examined. No stones were seen. An 8 [place] cone-tip catheter was intubated into the left ureteral orifice for left retrograde ureteropyelogram which demonstrated: Normal course and caliber of the distal ureter and mid ureter. The stone was seen as a filling defect in its expected position and there was easily efflux of contrast proximal to the stone the pyelocalyceal system was mildly dilated. No other stones were seen. Flexible tip guidewire was then advanced up beyond the level of the stone in the distal ureter was dilated with a 15 [place] 10 cm balloon. There were 2 areas in the distal ureter that took fairly high pressure to dilate. There were no filling defects around those areas on the retrograde think stone. The scope was removed and the wire was secured to the drapes as a safety wire. A second guidewire was passed. A 6 [place] mini scope was then advanced up the left ureter over the working guidewire. The stone was encountered in its expected position. It was quite irregular and spiky. A 200 ?m thulium superpulse laser fiber was utilized to fragment the stone partially. Some of the fragments migrated into the renal pelvis where the rigid scope would not access them. The guidewire was then repassed through the ureteroscope into the renal pelvis and the rigid scope was exchanged for a flexible video ureteroscope. All calyces were inspected. There was some small fragments in one of the midpole calyx. The bulk of the stone that had migrated there was in one of the lower pole calyx and it was fragmented completely with the laser fiber. Most of what remained was sand. The rest were tiny pieces that were almost the size of the tip of the 200 ?m laser fiber. On final inspection of the calyceal system there were no other substantial stones remaining. The scope was removed and the ureter was inspected as it was withdrawn. The cystoscope was then backloaded over the guidewire and a 6 [place] by 26 cm double-pigtail stent was advanced into the cystoscope over the guidewire up the ureter into appropriate position as confirmed via fluoroscopy and cystoscopy. Stent was confirmed to be draining. There were a few small fragments flushed out of the bladder. Procedure was completed. She tolerated procedure well without complications and was awakened in the operating room and returned to the recovery room in stable condition. PLANS: 1. Anticipate discharge from outpatient surgery today 2. Plan for maintaining stent till the end of next week for healing of the distal areas that required high-pressure dilation in order to pass the scope.
[2022-10-31] MEDS: levofloxacin-dextrose 5 % 500 MG/100 ML PREMIX 100 MG IV (08:49)
[2022-10-31] MEDS: iohexol 300 mg/mL 50 mL Btl (OR ONLY) XX (09:17)
[2022-10-31] MEDS: morphine 4 mg/mL SDV 1 mL IVP (10:52)
[2022-10-31] MEDS: HYDROcodone-acetaminophen 5-325 mg Tablet 1 TAB PO (10:56)
--- NOTE | 2022-10-31 13:25 | W.PM.OPSUD ---
Surgery/Procedure H&P Update DATE OF PROCEDURE: October 31, 2022 DATE H&P PERFORMED: 10/24/21 H&P UPDATE INFORMATION: I have reviewed H&P completed within last 30 days, I have examined patient prior to procedure, No changes to prior documentation and H&P is in [facility] [place] EMR on date indicated CHANGES TO PREVIOUS DOCUMENTATION: KUB shows the stone appears to be in roughly the same place She still having symptoms consistent with her prior renal colic Good review again of the procedure including potential stenting for passive dilation if unable to safely access the stone with ureteroscopy as well as a much rare possibility of requiring antegrade stent placement via percutaneous approach if could not get a wire beyond the stone PREOP DIAGNOSIS: Right knee medial meniscal tear PLANNED PROCEDURE: Operation Date: 10/31/22 08:05 Proposed Procedures p CYSTOSCOPY LEFT RETROGRADE URETEROSCOPY LASER STENT [address] [place] [address] [id number] [id number] N20.1, N20.0(Not Applicable) - Miguel Cross MD s Retrograde Pyelogram(Left) - Miguel Cross MD s Ureteroscopy(Left) - Miguel Cross MD s Laser Lithotripsy(Left) - Miguel Cross MD s Ureteral Stent Placement(Left) - Miguel Cross MD
--- NOTE | 2022-10-31 15:01 | ANE.PACU2 ---
Inpatient post-anesthesia follow up: Airway intact: Yes Vital signs: Temperature 97.1 F Pulse Rate 70 Respiratory Rate 18 Blood Pressure 128/64 Pulse Oximetry 100 Oxygen Delivery Me thod Room Air Oxygen Flow Rate 6 Fraction of Inspir ed Oxygen Hydration adequate: Yes Nausea and vomiting: No Pain level: 1 Mental status: Baseline
[2022-11-02 18:30] LABS: Stone Source LEFT URETER
== END 2022-10-31 11:44 | disposition home or self-care (01) ==
PROVIDERS: PCP Family Medicine; Visit Provider Urology
PROC: 0TJB8ZZ Inspection of Bladder, Via Natural or Artificial Opening Endoscopic (ICD-10-PCS; CPT 52000; principal; 2022-10-31 07:55)
PROC: (CPT 74420; 2022-10-31 07:55)
PROC: 0TJ98ZZ Inspection of Ureter, Via Natural or Artificial Opening Endoscopic (ICD-10-PCS; CPT 52351; 2022-10-31 07:55)
PROC: (CPT 52356; 2022-10-31 07:55)
PROC: (CPT 50605; 2022-10-31 07:55)
DX: N20.1 Calculus of ureter (principal)
CPT/HCPCS: 52356; 74018; 76000; 81025; 82365; 84703; 88300; C2625; J1100; J1200; J1956; J2250; J2270; J2405; J2704; J2710; J3010; J3490; J7030

== ENCOUNTER 2022-11-07 13:10 | Outpatient (CLI) | payer OTHER, SELFPAY ==
--- NOTE | 2022-11-07 13:48 | XR_ITS ---
WS: [id number] EXAMINATION: XR KUB [id number] REASON FOR EXAM: STONES COMPARISON: 10/31/2022. ORDER DATE: 11/07/2022 1:49 PM FINDINGS: Left ureteral stent placement. No evidence of renal calculi. IUD in the central pelvic cavity. XR/XR KUB [id number] IMPRESSION: Left ureteral stent placement unchanged.
== END 2022-11-07 13:11 | disposition home or self-care (01) ==
LOC: RAD 13:12
PROVIDERS: PCP Family Medicine; Visit Provider Urology
DX: N20.1 Calculus of ureter (principal); Z96.0 Presence of urogenital implants
CPT/HCPCS: 74018

== ENCOUNTER 2023-02-06 12:57 | Emergency (ER) | payer OTHER, SELFPAY ==
[2023-02-06 13:17] VITALS: BP 133/92; PULSE 95; RESP 16; TEMP 36.6; O2SAT 99
--- NOTE | 2023-02-06 13:30 | W.ED.GENADLT ---
HPI - General Adult General: Chief complaint: Needlestick/Injury/Exposure Stated complaint: Exposure to bodily fluids Time Seen by Provider: 02/06/23 13:26 Source: patient Mode of arrival: ambulatory Limitations: no limitations History of Present Illness: Patient is a very nice 22-year-old female presents to ED today for Worker's Comp. body exposure incident. 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 Source patient has consented to lab draw. Location: face, mouth and eyes Associated symptoms: Reports no associated symptoms Treatments prior to arrival: none Review of Systems General: Reports: 10 or more systems reviewed and unremarkable except in HPI and below PFSH ED PFSH: Medical History Tachycardia Well-controlled with propranolol Family History Mother No problems noted. Father No problems noted. Social History Smoking and tobacco status: never smoked Alcohol intake: current Alcohol intake frequency: holidays/special occasions only Marital status: Current occupational status: employed Physical Exam Const: COMMON NORMALS: no acute distress, average body habitus, no limitations, healthy appearing, alert and well nourished HENMT: FACE & SINUS: normal facial exam Eye: GENERAL EYE: appearance normal, both eyes and all related structures Neuro: SENSORIUM/ORIENTATION: Yes alert Course Vital Signs: Vital signs: Vital Signs Temperature 97.8 F 02/06/23 13:17 Pulse Rate 95 02/06/23 13:17 Respiratory Rate 16 02/06/23 13:17 Blood Pressure 133/92 02/06/23 13:17 Pulse Oximetry 99 02/06/23 13:17 Oxygen Delivery Me thod 02/06/23 13:17 MDM - General Adult Medical Decision Making Exposure would be a low risk for HIV. No PEP is indicated at this time. Employee exposure labs will be drawn. Source patient consented and labs will be drawn on them as well. Tetanus UTD. She is UTD on hepatitis B vaccinations. She will follow up with Worker's Comp. Discharge Plan Discharge Patient Disposition: Home Clinical Impression: Exposure to blood or body fluid Condition: Stable Prescriptions: No Action propranolol 20 mg tablet 20 mg PO DAILY escitalopram oxalate [Lexapro] 5 mg tablet 5 mg PO DAILY clindamycin-benzoyl peroxide 1.2 %(1 % base) -5 % gel 1 applic topical DAILY Qty: 45 2RF Rx Instructions: Apply thin film to face chest and back every morning. May bleach clothes. adapalene 0.3 % gel 1 applic topical DAILY Qty: 45 3RF Rx Instructions: Apply pea-sized amount to clean, dry face nightly amoxicillin 500 mg capsule 1,000 mg PO Q8H Qty: 30 0RF hydrocodone-acetaminophen 5-325 mg tablet 1 tab PO Q6H PRN (Reason: pain) 5 Days Qty: 20 0RF ketorolac 10 mg tablet See Rx Instructions .ROUTE .COMPLEX Qty: 14 1RF Dose Instruction: TAKE 1 TABLET BY MOUTH EVERY 8 HOURS NEEDED FOR PAIN Rx Instructions: TAKE 1 TABLET BY MOUTH EVERY 8 HOURS NEEDED FOR PAIN azithromycin 250 mg tablet See Rx Instructions PO .COMPLEX Qty: 6 0RF Rx Instructions: For 250 mg dose pack: take 500 mg today (day 1), then 250 mg for 4 days (days 2-5) PO ondansetron HCl 4 mg tablet 4 mg PO Q6H PRN (Reason: nausea and vomiting) Qty: 20 0RF Discharge Orders: Discharge ED (Routine); Ordered 02/06/23 Ordered By: Zuleika Patricio Referrals: Crispin Shine MD [Primary Care Provider] - Patient Instructions: Blood/Body Fluid Exposure - Occupational Activity Restrictions/Additional Instructions: As we discussed the risk of HIV neglectable from this type of exposure and no postexposure prophylaxis is recommended at this time. You should be contacted by the housekeeping department worker if any of the source patient labs return positive. Coding Level of Care Code ED Assorter Laundry for Angie Cade
[2023-02-06 14:55] LABS: Hepatitis B Surface AB 3.5 (11.5-1000); Hepatitis B Surface Antigen Non-Reactive (Nonreactive); Hepatitis C Virus Antibody Non-Reactive (Nonreactive)
[2023-02-06 14:56] LABS: HIV 1 & 2 Antibody Non-Reactive (Non-Reactiv); HIV 1 & 2 Antigen Non-Reactive (Non-Reactiv)
== END 2023-02-06 14:08 | disposition home or self-care (01) ==
PROVIDERS: Emergency Provider Physician Assistant; PCP Family Medicine
DX: Z77.21 Contact with and (suspected) exposure to potentially hazardous body fluids (principal); Y99.0 Civilian activity done for income or pay
CPT/HCPCS: 36415; 86706; 86803; 87340; 87806; 99283

== ENCOUNTER 2024-05-20 04:20 | Emergency (ER) | payer SELFPAY ==
[2024-05-20 04:22] VITALS: BP 122/89; PULSE 78; RESP 20; TEMP 36.6; O2SAT 97; BMI 24.3
[2024-05-20 04:51] LABS: Basophils # 0.1 10^3/uL (0.0-0.1); Basophils % 0.8 %; Eosinophils # 0.2 10^3/uL (0.0-0.8); Eosinophils % 3.2 %; Hematocrit 43.8 % (36-47); Lymphocytes # 2.7 10^3/uL (0.8-4.8); Lymphocytes % 40.6 %; Mean Corpuscular HGB Conc 33.1 g/dL (30-55); Mean Corpuscular Hemoglobin 29.4 pg (27-33); Mean Corpuscular Volume 88.8 fl (85-98); Monocytes # 0.7 10^3/uL (0.2-0.9); Monocytes % 10.3 %; Neutrophils # 2.94 10^3/uL (1.8-7.7); Neutrophils % 44.9 %; Nucleated Red Blood Cells % 0 %; Platelet Count 257 10^3/cmm (157-399); Red Blood Count 4.93 10^6/uL (3.85-5.65); Red Cell Distribution Width 12.7 % (12.1-15.1); White Blood Count 6.53 10^3/uL (3.29-11.43)
[2024-05-20] MEDS: sodium chloride 0.9% 1,000 ML 999 ML IV (04:54)
[2024-05-20] MEDS: ketorolac 30 mg/mL INJ IVP (04:54)
[2024-05-20] MEDS: ondansetron 2 mg/ML SDV 2 mL 4 MG IVP (04:54)
--- NOTE | 2024-05-20 05:06 | W.ED.ABDPA2 ---
Documented by User: Calvin Fowler DO 05/20/24 05:08 HPI - Abdominal Pain General: Chief Complaint: Abdominal Pain Stated Complaint: abd pain Time Seen by Provider: 05/20/24 04:46 History of Present Illness: Presents to the ER with complaints of abdominal pain and back pain for the last 4 days. Patient has had a lot of nausea during this time. Especially when she eats. Patient does have a history of kidney stones however that was a different pain than this. Patient still has her gallbladder and appendix. Patient has been having normal bowel movements with 1 bowel movement each day. Patient rates her pain a 5 out of 10. Review of Systems General: Reports: 10 or more systems reviewed and unremarkable except in HPI and below PFSH ED PFSH: Medical History Tachycardia Well-controlled with propranolol Family History Mother No problems noted. Father No problems noted. Social History Smoking and tobacco/nicotine status: never used tobacco/nicotine Alcohol intake: current Alcohol intake frequency: holidays/special occasions only Marital status: Current occupational status: employed Physical Exam Const: COMMON NORMALS: no acute distress, average body habitus, patient oriented x3, no limitations, healthy appearing, alert and well nourished HENMT: COMMON NORMALS: normocephalic, atraumatic, hearing grossly normal bilaterally, external ears normal, Normal external nose present and moist oral mucous membranes HEAD & SCALP: normocephalic and atraumatic NOSE: Normal external nose present EXTERNAL EAR: Yes external ears normal Neck/C-Spine: COMMON NORMALS: no JVD Chest: COMMONS NORMALS: normal inspection of the chest and normal palpation of entire chest wall Resp: COMMON NORMALS: normal respiratory effort, No retractions, No use of accessory muscles and clear to auscultation bilaterally AUSCULTATION: clear to auscultation bilaterally Cardio: COMMON NORMALS: no JVD, regular rate, regular rhythm, S1 normal heart sound present, S2 normal heart sound present, No gallops present (Cardio), No clicks present (Cardio), No murmurs present (Cardio) and No rub (Cardio) RATE: regular rate RHYTHM: regular rhythm HEART SOUNDS: S1 normal heart sound present and S2 normal heart sound present GI: COMMON NORMALS: Normal to inspection, nondistended, normoactive bowel sounds present, Soft to palpation, No hepatosplenomegaly present and no masses; negative for non-tender (Very exquisitely tender to palpate right upper quadrant reproduces pain) PALPATION: Yes Soft to palpation and Yes No hepatosplenomegaly present Neuro: COMMON NORMALS: patient oriented x3 SENSORIUM/ORIENTATION: Yes alert Course Vital Signs: Vital signs: Vital Signs Temperature 97.9 F 05/20/24 04:22 Pulse Rate 72 05/20/24 12:00 Respiratory Rate 16 05/20/24 07:00 Blood Pressure 116/75 05/20/24 12:00 Pulse Oximetry 100 05/20/24 12:00 Oxygen Delivery Me thod Room Air 05/20/24 12:00 MDM - Abdominal Pain Differential Diagnosis Likely abdominal pain Medical Records I reviewed the patient's medical records. Lab Data I reviewed the patient's lab results. 05/20/24 04:47 05/20/24 04:47 Labs/Radiology: Radiology Impressions Abdomen/Pelvis CT 05/20/24 05:08 IMPRESSION: Dilated common bile duct. Correlate with liver function tests. Pathology such as occult choledocholithiasis cannot be excluded. Cholangiopancreatography MRI 05/20/24 07:57 Impression: 1. 7.2 mm calculus in the distal common bile duct. 2. Cholelithiasis with contracted gallbladder. 3. No gallbladder wall thickening or pericholecystic fluid. Notified Ronaldo Aviles DO at 05/20/2024 9:24 AM. Laboratory Results WBC 6.53 10^3/uL (3.29-11.43) 05/20/24 04:47 RBC 4.93 10^6/uL (3.85-5.65) 05/20/24 04:47 Hgb 14.50 g/dL (11.27-16.99) 05/20/24 04:47 Hct 43.8 % (36-47) 05/20/24 04:47 MCV 88.8 fl (85-98) 05/20/24 04:47 MCH 29.4 pg (27-33) 05/20/24 04:47 MCHC 33.1 g/dL (30-55) 05/20/24 04:47 RDW 12.7 % (12.1-15.1) 05/20/24 04:47 Plt Count 257 10^3/cmm (157-399) 05/20/24 04:47 MPV 11.0 fL (7.4-10.4) H 05/20/24 04:47 Neut % (Auto) 44.9 % 05/20/24 04:47 Lymph % (Auto) 40.6 % 05/20/24 04:47 [place] % (Auto) 10.3 % 05/20/24 04:47 Eos % (Auto) 3.2 % 05/20/24 04:47 Baso % (Auto) 0.8 % 05/20/24 04:47 Neut # (Auto) 2.94 10^3/uL (1.8-7.7) 05/20/24 04:47 Lymph # (Auto) 2.7 10^3/uL (0.8-4.8) 05/20/24 04:47 [place] # (Auto) 0.7 10^3/uL (0.2-0.9) 05/20/24 04:47 Eos # (Auto) 0.2 10^3/uL (0.0-0.8) 05/20/24 04:47 Baso # (Auto) 0.1 10^3/uL (0.0-0.1) 05/20/24 04:47 Nucleated RBC % (auto) 0 % 05/20/24 04:47 Nucleated RBCs # 0.0 /100WBC 05/20/24 04:47 Sodium 137 mmol/L (136-145) 05/20/24 04:47 Potassium 3.5 mmol/L (3.5-5.1) 05/20/24 04:47 Chloride 101 mmol/L (98-107) 05/20/24 04:47 Carbon Dioxide 21 mmol/L (22-29) L 05/20/24 04:47 Anion Gap 18.5 (5-19) 05/20/24 04:47 BUN 11 mg/dL (6-20) 05/20/24 04:47 Creatinine 0.7 mg/dL (0.5-0.9) 05/20/24 04:47 GFR Calculation 102.0 mL/min (90-130) 05/20/24 04:47 Glucose 85 mg/dL (65-115) 05/20/24 04:47 Calculated Osmolality 283 mOsm/kg (285-295) L 05/20/24 04:47 Calcium 9.8 mg/dL (8.5-10.5) 05/20/24 04:47 Magnesium 1.9 mg/dL (1.7-2.3) 05/20/24 04:47 Total Bilirubin 1.4 mg/dL (0.15-1.2) H 05/20/24 04:47 AST 298 U/L (0-32) H 05/20/24 04:47 ALT 867 U/L (0-33) H 05/20/24 04:47 Alkaline Phosphatase 162 U/L (35-105) H 05/20/24 04:47 Total Protein 8.0 g/dL (6.6-8.7) 05/20/24 04:47 Albumin 4.6 g/dL (3.5-5.2) 05/20/24 04:47 Globulin 3.4 g/dL (1.3-4.6) 05/20/24 04:47 Lipase 39 U/L (13-60) 05/20/24 04:47 HCG, Qual Negative (Negative) 05/20/24 05:15 Urine Color Yellow (Yellow) 05/20/24 05:15 Urine Appearance Cloudy (CLEAR) A 05/20/24 05:15 Urine pH 5 (5-7) 05/20/24 05:15 Ur Specific [place] 1.025 (1.005-1.030) 05/20/24 05:15 Urine Protein Neg (Negative) 05/20/24 05:15 Urine Glucose (UA) Norm (Normal) 05/20/24 05:15 Urine Ketones 2+ (Negative) H 05/20/24 05:15 Urine Blood Neg (Negative) 05/20/24 05:15 Urine Nitrate Negative (Negative) 05/20/24 05:15 Urine Bilirubin 1+ (Negative) H 05/20/24 05:15 Urine Urobilinogen 4 mg/dL (Negative) H 05/20/24 05:15 Ur Leukocyte Esterase 2+ (Negative) H 05/20/24 05:15 Urine RBC 0-4 /hpf (0-2) H 05/20/24 05:15 Urine WBC 15-25 /hpf (0-5) H 05/20/24 05:15 Ur Squamous Epith Cells 40-55 /hpf (0-5) H 05/20/24 05:15 Amorphous Sediment Not Reportable 05/20/24 05:15 Urine Bacteria 2+ /hpf (NONE) H 05/20/24 05:15 Urine Mucus 3+ /hpf 05/20/24 05:15 All radiology interpretation(s) finalized by discharge Discharge Plan Discharge Patient Disposition: Xfer Short-Term Hosp Clinical Impression: Choledocholithiasis Condition: Stable Referrals: Crispin Shine MD [Primary Care Provider] - Patient Instructions: Opioid Safety, Pain Management Sign Out Sign Out Data: Patient Sign Out occurred on 05/20/24 at 05:41. Patient's care was discussed, and care was transferred from Calvin Fowler DO to Ronaldo Aviles DO. Coding Level of Care Code ED Warehouse Team Member for Chg Fwd Documented by User: Ronaldo Aviles DO 05/20/24 17:14 HPI - Abdominal Pain General: Chief Complaint: Abdominal Pain Stated Complaint: abd pain Time Seen by Provider: 05/20/24 04:46 [facility] ED PFSH: Medical History Tachycardia Well-controlled with propranolol Family History Mother No problems noted. Father No problems noted. Social History Smoking and tobacco/nicotine status: never used tobacco/nicotine Alcohol intake: current Alcohol intake frequency: holidays/special occasions only Marital status: Current occupational status: employed Course Vital Signs: Vital signs: Vital Signs Temperature 97.9 F 05/20/24 04:22 Pulse Rate 72 05/20/24 12:00 Respiratory Rate 16 05/20/24 07:00 Blood Pressure 116/75 05/20/24 12:00 Pulse Oximetry 100 05/20/24 12:00 Oxygen Delivery Me thod Room Air 05/20/24 12:00 MDM - Abdominal Pain Medical Decision Making Care assumed at change of shift pain well-controlled patient given IV fluids started on IV maintenance fluids also started prophylactic antibiotics ERCP shows a 7+ millimeter stone in the distal common bile duct. We have called multiple facilities [facility] agreed to accept the patient on transfer Dr. AUGUST will transfer via [facility] patient stable at the moment. We had called several facilities [facility] called back they are also willing to accept the patient patient preferred to go there we called [facility] and informed the patient would not be coming. Patient prefers to go by private vehicle which is acceptable at this time she is not acutely septic. Patient was discharged with all of her images and labs. She will proceed directly to [facility] advised not to eat or drink and route. Lab Data 05/20/24 04:47 05/20/24 04:47 Labs/Radiology: Radiology Impressions Abdomen/Pelvis CT 05/20/24 05:08 IMPRESSION: Dilated common bile duct. Correlate with liver function tests. Pathology such as occult choledocholithiasis cannot be excluded. Cholangiopancreatography MRI 05/20/24 07:57 Impression: 1. 7.2 mm calculus in the distal common bile duct. 2. Cholelithiasis with contracted gallbladder. 3. No gallbladder wall thickening or pericholecystic fluid. Notified Ronaldo Aviles DO at 05/20/2024 9:24 AM. Laboratory Results WBC 6.53 10^3/uL (3.29-11.43) 05/20/24 04:47 RBC 4.93 10^6/uL (3.85-5.65) 05/20/24 04:47 Hgb 14.50 g/dL (11.27-16.99) 05/20/24 04:47 Hct 43.8 % (36-47) 05/20/24 04:47 MCV 88.8 fl (85-98) 05/20/24 04:47 MCH 29.4 pg (27-33) 05/20/24 04:47 MCHC 33.1 g/dL (30-55) 05/20/24 04:47 RDW 12.7 % (12.1-15.1) 05/20/24 04:47 Plt Count 257 10^3/cmm (157-399) 05/20/24 04:47 MPV 11.0 fL (7.4-10.4) H 05/20/24 04:47 Neut % (Auto) 44.9 % 05/20/24 04:47 Lymph % (Auto) 40.6 % 05/20/24 04:47 [place] % (Auto) 10.3 % 05/20/24 04:47 Eos % (Auto) 3.2 % 05/20/24 04:47 Baso % (Auto) 0.8 % 05/20/24 04:47 Neut # (Auto) 2.94 10^3/uL (1.8-7.7) 05/20/24 04:47 Lymph # (Auto) 2.7 10^3/uL (0.8-4.8) 05/20/24 04:47 [place] # (Auto) 0.7 10^3/uL (0.2-0.9) 05/20/24 04:47 Eos # (Auto) 0.2 10^3/uL (0.0-0.8) 05/20/24 04:47 Baso # (Auto) 0.1 10^3/uL (0.0-0.1) 05/20/24 04:47 Nucleated RBC % (auto) 0 % 05/20/24 04:47 Nucleated RBCs # 0.0 /100WBC 05/20/24 04:47 Sodium 137 mmol/L (136-145) 05/20/24 04:47 Potassium 3.5 mmol/L (3.5-5.1) 05/20/24 04:47 Chloride 101 mmol/L (98-107) 05/20/24 04:47 Carbon Dioxide 21 mmol/L (22-29) L 05/20/24 04:47 Anion Gap 18.5 (5-19) 05/20/24 04:47 BUN 11 mg/dL (6-20) 05/20/24 04:47 Creatinine 0.7 mg/dL (0.5-0.9) 05/20/24 04:47 GFR Calculation 102.0 mL/min (90-130) 05/20/24 04:47 Glucose 85 mg/dL (65-115) 05/20/24 04:47 Calculated Osmolality 283 mOsm/kg (285-295) L 05/20/24 04:47 Calcium 9.8 mg/dL (8.5-10.5) 05/20/24 04:47 Magnesium 1.9 mg/dL (1.7-2.3) 05/20/24 04:47 Total Bilirubin 1.4 mg/dL (0.15-1.2) H 05/20/24 04:47 AST 298 U/L (0-32) H 05/20/24 04:47 ALT 867 U/L (0-33) H 05/20/24 04:47 Alkaline Phosphatase 162 U/L (35-105) H 05/20/24 04:47 Total Protein 8.0 g/dL (6.6-8.7) 05/20/24 04:47 Albumin 4.6 g/dL (3.5-5.2) 05/20/24 04:47 Globulin 3.4 g/dL (1.3-4.6) 05/20/24 04:47 Lipase 39 U/L (13-60) 05/20/24 04:47 HCG, Qual Negative (Negative) 05/20/24 05:15 Urine Color Yellow (Yellow) 05/20/24 05:15 Urine Appearance Cloudy (CLEAR) A 05/20/24 05:15 Urine pH 5 (5-7) 05/20/24 05:15 Ur Specific [place] 1.025 (1.005-1.030) 05/20/24 05:15 Urine Protein Neg (Negative) 05/20/24 05:15 Urine Glucose (UA) Norm (Normal) 05/20/24 05:15 Urine Ketones 2+ (Negative) H 05/20/24 05:15 Urine Blood Neg (Negative) 05/20/24 05:15 Urine Nitrate Negative (Negative) 05/20/24 05:15 Urine Bilirubin 1+ (Negative) H 05/20/24 05:15 Urine Urobilinogen 4 mg/dL (Negative) H 05/20/24 05:15 Ur Leukocyte Esterase 2+ (Negative) H 05/20/24 05:15 Urine RBC 0-4 /hpf (0-2) H 05/20/24 05:15 Urine WBC 15-25 /hpf (0-5) H 05/20/24 05:15 Ur Squamous Epith Cells 40-55 /hpf (0-5) H 05/20/24 05:15 Amorphous Sediment Not Reportable 05/20/24 05:15 Urine Bacteria 2+ /hpf (NONE) H 05/20/24 05:15 Urine Mucus 3+ /hpf 05/20/24 05:15 Discharge Plan Discharge Patient Disposition: Xfer Short-Term Hosp Clinical Impression: Choledocholithiasis Condition: Stable Referrals: Crispin Shine MD [Primary Care Provider] - Patient Instructions: Opioid Safety, Pain Management Sign Out Sign Out Data: Patient Sign Out occurred on 05/20/24 at 05:41. Patient's care was discussed, and care was transferred from Calvin Fowler DO to Ronaldo Aviles DO. Coding Level of Care Code ED Warehouse Team Member for Angie Cade
--- NOTE | 2024-05-20 05:08 | CTR_ITS ---
PROCEDURE INFORMATION: Exam: CT Abdomen And Pelvis With Contrast Exam date and time: 05/20/2024 5:30 AM Age: 23 years old Clinical indication: Abdominal pain; Prior surgery; Surgery date: 6+ months; Surgery type: Stent placed for renal stone; Additional info: Ruq pain n/v TECHNIQUE: Imaging protocol: Computed tomography of the abdomen and pelvis with contrast. Radiation optimization: All CT scans at this facility use at least one of these dose optimization techniques: automated exposure control; mA and/or kV adjustment per patient size (includes targeted exams where dose is matched to clinical indication); or iterative reconstruction. Contrast material: OMNI 350; Contrast volume: 100 ml; Contrast route: INTRAVENOUS (IV); COMPARISON: CT kidney stone [id number] 10/17/2022 7:54 AM RADIATION DOSE METRICS: Total DLP (mGy-cm): 409.3 FINDINGS: Liver: Normal. No mass. Gallbladder and bile ducts: Cholelithiasis. Contracted gallbladder. Negative for gallbladder wall thickening. Negative for pericholecystic inflammation. Negative for intrahepatic biliary dilation. Common bile duct is mildly dilated and increased from comparison with smooth distal tapering changes. The mid common bile duct segment measures up to 11 mm diameter; previously 7 mm measured at the same level. Pancreas: Normal. No ductal dilation. Spleen: Normal. No splenomegaly. Adrenal glands: Normal. No mass. Kidneys and ureters: Normal. No hydronephrosis. Stomach and bowel: Unremarkable. No obstruction. No mucosal thickening. Appendix: Normal appendix. Intraperitoneal space: Trace pelvic free fluid with simple appearance. No free air. Vasculature: Unremarkable. No abdominal aortic aneurysm. Lymph nodes: Unremarkable. No enlarged lymph nodes. Urinary bladder: Unremarkable as visualized. Reproductive: Unremarkable as visualized. Bones/joints: Unremarkable. No acute fracture. Soft tissues: Unremarkable. CT/CT abdomen pelvis w con* [id number] IMPRESSION: Dilated common bile duct. Correlate with liver function tests. Pathology such as occult choledocholithiasis cannot be excluded.
[2024-05-20 05:12] LABS: Albumin Level 4.6 g/dL (3.5-5.2); Alkaline Phosphatase 162 U/L (35-105); Anion Gap 18.5 (5-19); Aspartate Amino Transferase 298 U/L (0-32); Blood Urea Nitrogen 11 mg/dL (6-20); Calcium 9.8 mg/dL (8.5-10.5); Carbon Dioxide 21 mmol/L (22-29); Chloride 101 mmol/L (98-107); Creatinine Clr Calc Pharmacy 113.6227; Globulin 3.4 g/dL (1.3-4.6); Glucose 85 mg/dL (65-115); Lipase 39 U/L (13-60); Magnesium 1.9 mg/dL (1.7-2.3); Osmolality Calculated 283 mOsm/kg (285-295); Potassium 3.5 mmol/L (3.5-5.1); Sodium 137 mmol/L (136-145); Total Bilirubin 1.4 mg/dL (0.15-1.2)
[2024-05-20 05:20] LABS: HCG Qualitative Urine. Negative (Negative)
[2024-05-20 05:22] LABS: Add Urine Microscopic? YES; Bilirubin Urine 1+ (Negative); Blood Urine Neg (Negative); Glucose Urine UA Norm (Normal); Ketones Urine 2+ (Negative); Leukocyte Esterase Urine 2+ (Negative); Nitrate Urine Negative (Negative); Protein Urine Neg (Negative); Specific Gravity, Urine 1.025 (1.005-1.030); Urine Appearance Cloudy (CLEAR); Urine Color Yellow (Yellow); Urobilinogen Urine 4 mg/dL (Negative); pH Urine 5 (5-7)
[2024-05-20 05:23] LABS: Add Urine Culture? No; Bacteria Urine 2+ /hpf; Mucus Urine 3+ /hpf; RBC Urine 0-4 /hpf (0-2); Squamous Epithelial Cell Urine 40-55 /hpf (0-5); WBC Urine 15-25 /hpf (0-5)
[2024-05-20 05:24] LABS: Alanine Aminotransferase 867 U/L (0-33)
[2024-05-20] MEDS: iohexol 350 mg/mL 500 mL Btl (per mL) IV (05:34)
--- NOTE | 2024-05-20 05:54 | PC.NURSE ---
This nurse attempted to get a straight cath urine specimen from patient. Patient declined at this time. Patient was educated on reason and importance of obtaining clean urine specimen, and once again declined. ED physician notified.
[2024-05-20 05:55] VITALS: PULSE 81; RESP 18; O2SAT 100
[2024-05-20 07:00] VITALS: BP 114/63; PULSE 82; RESP 16; O2SAT 99
--- NOTE | 2024-05-20 07:57 | MR_ITS ---
WS: [id number] MRI/MRCP OF THE ABDOMEN WITHOUT GADOLINIUM ENHANCEMENT TECHNIQUE: Coronal T2 Fase BH, Axial T2 Fase BH, Axial T2 FS BH, Zxial 3D Barahona BH, Axial DWI BH, 2D MRCP Radial BH, 3D MRCP (Resp), and Axial 3D Dyn BH Post sequences. CLINICAL INFORMATION: Dilated common bile duct elevated liver enzymes and T. bili COMPARISON: CT earlier today FINDINGS: Cholelithiasis. Gallbladder is contracted. Dilated common bile duct measuring 11 mm the pancreatic he ad. 7.2 mm calculus in the distal common bile duct. Numerous calculi in the contracted gallbladder. N o gallbladder wall thickening or pericholecystic fluid. Normal liver. Normal spleen. No hydronephrosis in either kidney. Normal pancreas. Normal caliber abdo roselia aorta. MR/MR MRCP [id number] Impression: 1. 7.2 mm calculus in the distal common bile duct. 2. Cholelithiasis with contracted gallbladder. 3. No gallbladder wall thickening or pericholecystic fluid. Notified Ronaldo Aviles DO at 05/20/2024 9:24 AM.
[2024-05-20 08:00] VITALS: BP 111/66; O2SAT 98
[2024-05-20] MEDS: LORazepam 2 mg/mL INJ 10 mL MDV IVP (08:23)
--- NOTE | 2024-05-20 08:26 | PC.NURSE ---
PT taken to MRI @ [id number]
[2024-05-20] MEDS: piperacillin-tazobactam 3.375 GM in sodium chloride 0.9% (plus) 50 ML IV (09:55)
--- NOTE | 2024-05-20 10:21 | PC.PHAR ---
PER SPOUSE-PT TAKES ONLY 2 MEDS: PROPRANOLOL 40MG BID AND BUPROPION [id number] DAILY.
[2024-05-20 11:00] VITALS: BP 118/71; PULSE 98; O2SAT 100
[2024-05-20] MEDS: sodium chlor 0.9% + KCl 20 mEq 20 MEQ/1,000 ML BAG 125 MEQ IV (11:53)
[2024-05-20 12:00] VITALS: BP 116/75; PULSE 72; O2SAT 100
== END 2024-05-20 13:50 | disposition short-term general hospital (02) ==
PROVIDERS: Emergency Medicine; Emergency Provider Family Medicine; PCP Family Medicine
DX: K80.50 Calculus of bile duct without cholangitis or cholecystitis without obstruction (principal)
CPT/HCPCS: 36415; 74177; 74181; 80053; 81001; 81025; 83690; 83735; 85025; 87040; 96365; 96366; 96375; 99285; J1885; J2060; J2405; J2543; J3480; J7030; Q9967